=== PATIENT | female | born 1965 | race Caucasian/White ===

== ENCOUNTER → 2017-10-31 | Outpatient (CLI) | payer OTHER | LOC: FIMAGING 13:09 | PROVIDERS: ATTEND Obstetrics & Gynecology | DX: Z12.31 Encounter for screening mammogram for malignant neoplasm of breast (principal); Z13.820 Encounter for screening for osteoporosis; Z78.0 Asymptomatic menopausal state ==

== ENCOUNTER 2018-01-12 05:47 | Day surgery (SDC) | payer OTHER ==
--- NOTE | 2018-01-11 23:17 | GHP ---
DATE OF ADMISSION: 01/12/2018 HISTORY UPON PRESENTATION: The patient is a 52-year-old G0 white female, who has been noted to have a slightly thickened endometrial lining on an atypical bioidentical hormone replacement. The patient has been advised of the uncertain nature of the thickened endometrium and was advised to try to slough the endometrial lining by stopping her hormone replacement. Patient stopped the hormones in December of 2017, and has not had any uterine bleeding. The patient's last ultrasound was in November at which time her endometrial thickness was 0.77 cm. The patient has been advised that this is not inordinately thick; however, there is thickness with a heterogeneous texture with possibly a feeder vessel. The patient also on comparison had an endometrial thickness in 2005, of 5.6 mm with possibly a 7 mm polyp in the endometrial canal. The patient has been thoroughly counseled as to the options of evaluating the endometrial lining. She was given the option of doing an endometrial biopsy in the office and then proceeding with continued observation and repeat ultrasounds to see if the lining thickens. The other alternative would be to pursue a more definitive evaluation with a hysteroscopy and visual evaluation as well as a D and C with a polypectomy if a polyp is found. The patient is also advised to go on more traditional hormone replacement if needed for her chronic insomnia issues as well as persistent hot flashes. Patient is advised of the difficulty predicting absorption of bioidentical hormones and the less regulated production. The patient has been in menopause since the age of 48 and has been on compounded hormones. The patient was advised as to the caution of the bioidenticals in September, which prompted an ultrasound to check the lining. The patient is not having postmenopausal bleeding. The patient was counseled as to the risks and benefits of hysteroscopy and D and C, and consent form has been signed. PAST MEDICAL HISTORY: Hypercholesterolemia, irritable bowel syndrome, history of dysmenorrhea, chronic insomnia. PAST SURGICAL HISTORY: Laparoscopic left ovarian cystectomy in February 2000. PAST GYNECOLOGIC HISTORY: Menopause at the age of 48 with no prior history of pelvic inflammatory disease. At the time of laparoscopy, there is no obvious etiology for the dysmenorrhea. No signs of endometriosis. PAST OBSTETRIC HISTORY: Negative. FAMILY HISTORY: Maternal grandmother with colon cancer, who at the age of 50. ALLERGIES: No known drug allergies. CURRENT MEDICATIONS: Bioidentical hormone replacement with Biest that was discontinued early December. The patient did start p.m. progesterone to try to help miserable hot flashes. Patient also has insomnia that has been worsened. SOCIAL HISTORY: The patient is a nonsmoker. No alcohol or drug use. The patient is in a monogamous long-term relationship. PHYSICAL EXAM: GENERAL: The patient is a well-developed, well-nourished white female in no physical distress. VITAL SIGNS: Patient is clinically afebrile. Blood pressure 98/62, weight 154 pounds. LUNGS: Clear to auscultation bilaterally. CARDIOVASCULAR: Regular rate and rhythm. HEENT: Oropharynx is clear. No signs of thyromegaly. ABDOMEN: Soft and nontender. PELVIC: Performed in September, and the Pap smear is done at that time and is negative. Uterus itself is small, mobile, and nontender; and there are no adnexal masses. DATA: Pelvic ultrasound was performed in November and showed the uterus 6.7 x 3 x 4 cm with the endometrial thickness of 0.77. Small fibroid less than 9 mm. Bilaterally, the ovaries were normal. ASSESSMENT: Moderately thick endometrial line on bioidentical hormone replacement. PLAN: Will proceed with a D and C and a hysteroscopy on January 12. Patient wants more definitive evaluation of the thickness and better sampling. Patient will schedule a postoperative visit to discuss results and the plan for further hormone replacement. /[id number]/MODL MTDD
[2018-01-12] MEDS ORDERED: LR 1,000 ML IV ONE (05:51)
[2018-01-12] MEDS ORDERED: ceFAZolin 2 GM/DEXTROSE 100 ML IV ONE (05:51)
[2018-01-12] MEDS ORDERED: LIDOCAINE 1% 2 ML INJ ID PRN (05:51)
[2018-01-12] MEDS ORDERED: SILVER NITRATE APPLICATOR 1 APPL TP ONE (06:25)
[2018-01-12] MEDS ORDERED: PROPOFOL 200 MG/20 ML VIAL ONE ×2 (07:12)
[2018-01-12] MEDS ORDERED: fentaNYL 100 MCG/2 ML INJ ONE (07:12)
[2018-01-12] MEDS ORDERED: MIDAZOLAM 2 MG/2 ML VIAL ONE (07:12)
--- NOTE | 2018-01-12 07:21 | PDHPUP ---
History & Physical Update H&P update statement: This history and physical update is based on an assessment of the patient which was completed after admission or registration (within 24 hours), but prior to the surgery/procedure. H&P update: no change in patient's condition since H&P completed
[2018-01-12] MEDS ORDERED: LIDOCAINE 2% 2 ML INJ ONE (07:32)
[2018-01-12] MEDS ORDERED: DEXAMETHASONE 4 MG/ML VIAL ONE (07:32)
[2018-01-12] MEDS ORDERED: METOCLOPRAMIDE 10 MG/2 ML VIAL ONE (07:32)
[2018-01-12] MEDS ORDERED: ePHEDrine SULFATE 25 MG/5 ML SYR ONE (07:32)
[2018-01-12] MEDS ORDERED: KETOROLAC 30 MG/1 ML SDV ONE (07:32)
[2018-01-12] MEDS ORDERED: ONDANSETRON 4 MG/2 ML VIAL ONE (07:32)
[2018-01-12] MEDS ORDERED: METOCLOPRAMIDE 10 MG/2 ML VIAL IVP PRN (07:43)
[2018-01-12] MEDS ORDERED: oxyCODONE IR 5 MG TAB PO PRN (07:43)
[2018-01-12] MEDS ORDERED: ACETAMINOPHEN 500 MG TAB PO PRN (07:43)
[2018-01-12] MEDS ORDERED: NALOXONE HCL 0.4 MG/ML INJ IVP PRN (07:43)
[2018-01-12] MEDS ORDERED: LR 500 ML IV PRN (07:43)
[2018-01-12] MEDS ORDERED: MEPERIDINE 25 MG/0.5 ML AMP IVP PRN (07:43)
[2018-01-12] MEDS ORDERED: ONDANSETRON 4 MG/2 ML VIAL IVP PRN (07:43)
[2018-01-12] MEDS ORDERED: PROMETHAZINE HCL 25 MG/ML INJ IVP PRN (07:43)
[2018-01-12] MEDS ORDERED: DEXAMETHASONE 4 MG/ML VIAL IVP PRN (07:43)
[2018-01-12] MEDS ORDERED: fentaNYL 100 MCG/2 ML INJ IVP PRN (07:43)
[2018-01-12] MEDS ORDERED: HYDROCODONE/APAP 5/325 TAB PO PRN (07:43)
[2018-01-12] MEDS ORDERED: ALBUTEROL 3 ML DEYVIAL IH PRN (07:43)
--- NOTE | 2018-01-12 07:43 | PDANEPAE ---
ANE Past Medical History - Cardiovascular History Hx Hypertension: No Hx Arrhythmias: No Hx Chest Pain: No Hx Coronary Artery / Peripheral Vascular Disease: No Hx CHF / Valvular Disease: No Hx Palpitations: No - Pulmonary History Hx COPD: No Hx Asthma/Reactive Airway Disease: No Hx Recent Upper Respiratory Infection: No Hx Oxygen in Use at Home: No Hx Sleep Apnea: No Sleep Apnea Screening Result - Last Documented: Negative - Neurologic History Hx Cerebrovascular Accident: No Hx Seizures: No Hx Dementia: No - Endocrine History Hx Diabetes: No - Renal History Hx Renal Disorders: No - Liver History Hx Hepatic Disorders: No - Neurological & Psychiatric Hx Hx Neurological and Psychiatric Disorders: No - Cancer History Hx Cancer: No - Congenital Disorder History Hx Congenital Disorders: No - GI History Hx Gastrointestinal Disorders: No - Chronic Pain History Chronic Pain: No - Surgical History Prior Surgeries: REMVL LT OVARIAN CYST ANE Review of Systems Review of Systems: - Exercise capacity METS (RN): 6 METS ANE Patient History - Allergies Allergies/Adverse Reactions: gluten Allergy (Verified 01/05/18 11:15) PREFERS TO AVOID - Home Medications Home Medications: Testosterone DAILY 01/05/18 [Last Taken 01/10/18 4mg] - NPO status NPO Since - Liquids (Date): 01/12/18 NPO Since - Liquids (Time): 02:00 NPO Since - Solids (Date): 01/11/18 NPO Since - Solids (Time): 20:30 - Smoking Hx Smoking Status: Never smoked - Family Anes Hx Family Hx Anesthesia Complications: NEG ANE Labs/Vital Signs - Vital Signs Blood Pressure: 103/69 Heart Rate: 58 Respiratory Rate: 18 O2 Sat (%): 99 Height: 182.88 cm Weight: 68.039 kg ANE Physical Exam - Airway Neck exam: FROM Mallampati Score: Class 1 Mouth exam: normal dental/mouth exam - Pulmonary Pulmonary: no respiratory distress, no rales or rhonchi, clear to auscultation - Cardiovascular Cardiovascular: regular rate and rhythym, no murmur, rub, or gallop, pulses symmetric bilaterally - ASA Status ASA Status: I ANE Anesthesia Plan Anesthesia Plan: GA w LMA, GA with mask
--- NOTE | 2018-01-12 08:15 | POSTOPPROG ---
Post Op Note Date of Operation: 01/12/18 Surgeon: Rubia Givens Welding Machine Operator Thermit: none Anesthesiologist: Mimi García MD Anesthesia: LMA Pre-op Diagnosis: thickened endometrium in menopause Post-op Diagnosis: endometrial polyp Indication: on bioidentical HRT and thickened lining of 0.77 noted on U/S, no bld Procedure: HSC polypectomy Findings: thin endometrium except for flat polyp on post wall, easily removed Inf/Abcess present in the surg proc area at time of surgery?: No Depth: Organ Space EBL: Minimal Total fluids administered: 300 Complications: none Specimen(s): endometrial tissue c/w polyp
--- NOTE | 2018-01-12 08:43 | GOP ---
DATE OF OPERATION: 01/12/2018 SURGEON: Rubia Givens MD ANESTHESIA: Laryngeal mask anesthesia. ANESTHESIOLOGIST: Mimi Green MD. PREOPERATIVE DIAGNOSIS: Thickened endometrium in menopause. POSTOPERATIVE DIAGNOSIS: 1. Thickened endometrium in menopause. 2. Tissue consistent with endometrial polyp. PROCEDURE PERFORMED: Hysteroscopic polypectomy. FINDINGS: SPECIMENS: Tissue was the endometrial tissue consistent with polyp sent to pathology. There were no complications. Total IV fluids were 300 mL. ESTIMATED BLOOD LOSS: Minimal. There was no evidence of infection at the time of surgery. INDICATIONS: The patient is a 52-year-old white female on bioidentical hormone replacement since the age of 48 for menopausal symptoms. Patient was on an atypical regimen and an ultrasound was recomme nded. The patient was not having any postmenopausal bleeding. However, the lining on the ultrasound was 0.77 cm. Otherwise, the uterus and ovaries appeared normal. The patient was advised this was s lightly thickened and given options of observation and reducing hormone replacement versus more thoro ugh evaluation with biopsies or hysteroscopy. Patient opted for the most thorough information and ri sks and benefits were discussed of hysteroscopy and the consent form signed. DESCRIPTION OF PROCEDURE: The patient was taken to the operating room where following satisfactory l aryngeal mask anesthesia, the patient was placed in dorsal lithotomy position. The patient's perineu m and vagina were prepped and the patient draped in usual sterile manner for hysteroscopy. The patie nt had SCDs on her lower extremities for DVT prophylaxis and was given a preoperative antibiotic IV. The patient also emptied her bladder prior to coming to the operating room. After draping, a steril e speculum was placed within the vagina and the single-tooth tenaculum was placed on the anterior lip of the cervix. Gentle traction was applied and the cervix was slowly dilated up to #7 Hegar dilator . The hysteroscope was introduced without any problems and there was good visualization obtained. T he endometrial cavity appeared normal with a thin endometrium. The tubal ostia were easily viewed an d were normal. On the posterior aspect in the midline, there was a flat raised tissue consistent wit h a polyp. The polyp morcellator was used to remove this tissue down to the flat endometrium. Other mas, the rest of the cavity appeared normal down to the cervix. There were no complications or evid ence of perforation. Fluid deficit was 110 mL. The hysteroscope was removed and the tenaculum taken off the cervix. There was minimal bleeding from the cervix. The patient was cleaned off and taken out of position and then transported back to the recovery room. The patient had the LMA removed and was breathing fine in the recovery room. /[id number]/MODL
--- NOTE | 2018-01-12 08:55 | POSTANESTH ---
Post Anesthetic Evaluation Cardiovascular Status: Normal, Stable, Similar to Pre-Op Cond Respiratory Status: Normal, Stable, Similar to Pre-op Cond. Level of Consciousness/Mental Status: Mildly Sleepy, Arousable Pain Control: Adequate, Prn Tx Ordered Nausea/Vomiting Control: Adequate, Prn Tx Ordered Complications Possibly Related to Anesthesia: None Noted
[2018-01-12 09:42] VITALS: BP 109/75
== END 2018-01-12 09:43 | disposition home or self-care (01) ==
LOC: FSGY 05:47
PROVIDERS: ATTEND Obstetrics & Gynecology
PROC: 0UDB8ZX Extraction of Endometrium, Via Natural or Artificial Opening Endoscopic, Diagnostic (ICD-10-PCS; principal; 2018-01-12 07:15)
DX: R93.8 Abnormal findings on diagnostic imaging of other specified body structures (principal); Z78.0 Asymptomatic menopausal state
CPT/HCPCS: 58558; C1782; J0690; J1100; J1885; J2250; J2405; J2704; J2765; J3010